=== PATIENT | male | born 1960 | race Caucasian/White ===

== ENCOUNTER 2021-03-29 12:45 | Emergency (ER) | payer OTHER, SELFPAY ==
[2021-03-29 13:10] VITALS: BP 123/79; PULSE 97; RESP 15; TEMP 37.2; O2SAT 99; BMI 31.4
[2021-03-29 15:20] VITALS: BP 130/77; PULSE 87; RESP 16; O2SAT 99
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
[2021-03-29] MEDS: BUPIVACAINE 0.5% W/ EPI (PF) 30 ML VIAL 5 ML SUBCUT (16:29)
[2021-03-29 16:30] VITALS: BP 119/87; PULSE 77; RESP 18; O2SAT 99
== END 2021-03-29 16:31 | disposition home or self-care (01) ==
PROVIDERS: Emergency Provider Emergency Medicine
DX: S51.012A Laceration without foreign body of left elbow, initial encounter (principal); V29.9XXA Motorcycle rider (driver) (passenger) injured in unspecified traffic accident, initial encounter
CPT/HCPCS: 12002; 99283